=== PATIENT | male | born 1980 | race Caucasian/White ===

== ENCOUNTER 2017-09-29 17:22 | Emergency (ER) | payer OTHER, SELFPAY ==
[2017-09-29 17:36] VITALS: BP 134/96; PULSE 78; RESP 20; TEMP 36.8; O2SAT 96
[2017-09-29 17:44] VITALS: PULSE 79
--- NOTE | 2017-09-29 17:44 | DI.RAD.S_ITS ---
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 TECHNIQUE: 2 views of the forearm were acquired. COMPARISON: None. FINDINGS: Bones: No fractures or dislocations. No suspicious bony lesions. Soft tissues: No radiopaque foreign bodies or suspicious calcifications. There is a soft tissue laceration demonstrated within the volar soft tissues at the level of the mid forearm. There is associated soft tissue gas. IMPRESSION: 1. No fractures or radiopaque foreign bodies. Dictated by: Tex Ragsdale M.D. on 09/29/2017 at 18:47 Approved by: Tex Ragsdale M.D. on 09/29/2017 at 18:49
--- NOTE | 2017-09-29 17:44 | ED_ITS ---
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
--- NOTE | 2017-09-29 17:51 | ED_ITS ---
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 4 cm wide gaping jagged laceration transversely across his anterior right mid forearm. 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 Patient notes normal sensation and strength in his right hand. Denies further injuries. ROS with no recent constitutional symptoms. Exam Gen: Pleasant, nontoxic-appearing, resting comfortably. HEENT: NC, AT, PEERL, EOMI. Resp: Unlabored respirations with a normal work of breathing. Card: Extremities warm and well perfused. GI: Non-distended. : Deferred MSK: Right Upper Extremity - ~10 cm x 4 cm obliquely oriented mid anterior forearm laceration. Otherwise visually normal, full functional range of motion of the shoulder, elbow, wrist, and fingers. No abnormal warmth, tenderness, or other palpable abnormalities of the joints or upper arm or forearm; muscle compartments soft.2+ radial pulse, all fingers warm and well perfused.Sensation intact to touch on all fingers. 5/5 strength on all fingers on flexion, extension, abduction, adduction, thumb with 5/5 strength in full movement of opposition. Neuro: AO x 3, no facial asymmetry, vision and hearing WNL. Heme/Lymph: Deferred Skin: Normal color with no visible lesions (other than noted above). Psych: Mood and affect appropriate. XR R forearm: pending. MDM Previous chart, nursing note, and vitals reviewed. A: 37-year-old male with up-to-date tetanus presents from work with ~10 cm long ? 4 cm wide gaping jagged laceration transversely across his anterior right mid forearm. DDx & Evaluation: initial evaluation without evidence of obvious CMS deficits. 12 ML's of 0.5% bupivacaine with with epinephrine were injected in a local field block after initial cleaning of the laceration. Patient care transferred to the oncoming [facility] provider pending closure of the wound by Ana SHAH. Anticipated repeat evaluation of CMS after wound cleaning and forearm x-ray to evaluate for foreign bodies. Impression: laceration (please reference below for remainder of encounter information) [facility] Social History Smoking Status: Former smoker Exam Initial Vital Signs Initial Vital Signs: Vital Signs Temperature 98.3 F 09/29/17 17:36 Pulse Rate 78 09/29/17 17:36 Respiratory Rate 20 09/29/17 17:36 Blood Pressure 134/96 H 09/29/17 17:36 Pulse Oximetry 96 09/29/17 17:36 Course Orders Ordered: ED Orders 09/29/17 17:44 XR forearm RT 2V Stat Vital Signs - 8 hr 09/29/17 17:36 09/29/17 17:44 Temperature 98.3 F Pulse Rate 78 Pulse Rate [Right Radial] 79 Respiratory Rate 20 Blood Pressure 134/96 H Pulse Oximetry 96
[2017-09-29 18:57] VITALS: PULSE 69; O2SAT 98
[2017-09-29 19:35] VITALS: BP 120/71; PULSE 74; O2SAT 99
== END 2017-09-29 19:43 | disposition home or self-care (01) ==
LOC: ED 18:46
PROVIDERS: Emergency Provider Emergency Medicine
DX: S51.811A Laceration without foreign body of right forearm, initial encounter (principal); W31.89XA Contact with other specified machinery, initial encounter
CPT/HCPCS: 12032; 73090; 99283